=== PATIENT | female | born 1975 | race Caucasian/White ===

== ENCOUNTER → 2016-09-15 | Outpatient (CLI) | payer BC ==
[~2016-09-15] MED LIST: PHENTERMINE30 MG PO; PREDNISONE 20MG20 MG PO
== END ==
LOC: MC.RAD 10:20
DX: Z12.31 Encounter for screening mammogram for malignant neoplasm of breast (principal)

== ENCOUNTER → 2018-01-26 | Outpatient (CLI) | payer BC | LOC: MC.RAD 07:04 | DX: Z12.31 Encounter for screening mammogram for malignant neoplasm of breast (principal) ==

== ENCOUNTER → 2018-12-24 | Outpatient (CLI) | payer BC ==
[2018-12-24 11:51] LABS: THYROXINE (T4)-TOTAL 6.3 ug/dL (5.5-11.0)
[2018-12-24 12:05] LABS: THYROID STIMULATING HORMONE < 0.015 uIU/mL (0.465-4.680)
[2018-12-24 22:56] LABS: T3 FREE (TRI-IODOTHYRONINE) 2.8 pg/mL (1.7-3.7)
== END ==
LOC: COL.RAD 10:30
DX: E04.2 Nontoxic multinodular goiter (principal)

== ENCOUNTER → 2019-12-14 | Outpatient (CLI) | payer BC | LOC: COL.RAD 07:03 | DX: M19.012 Primary osteoarthritis, left shoulder (principal) ==

== ENCOUNTER 2020-08-03 06:27 | Day surgery (SDC) | payer BC ==
[~2020-08-03] VITALS: Ht 167.6 cm; Wt 91.2 kg
[2020-08-03] MEDS ORDERED: ZOLOFT 50MG50 MG PO (07:03)
[2020-08-03] MEDS ORDERED: AIMOVIG AU70 MG/1 M1 SQ (07:03)
[2020-08-03] MEDS ORDERED: TROKEND100 PO (07:04)
[2020-08-03] MEDS ORDERED: MAXALT5 MG PO (07:04)
[2020-08-03] MEDS ORDERED: ATIVAN 0.50.5 MG/TAB PO (07:04)
[2020-08-03] MEDS ORDERED: CLARITIN 1010 MG/TAB PO (07:05)
[2020-08-03] MEDS ORDERED: ZYRTEC 10MG10 MG PO (07:05)
[2020-08-03] MEDS ORDERED: BIOTIN10000 MC1 PO (07:06)
[2020-08-03] MEDS ORDERED: PRILOTC PO (07:22)
[2020-08-03 07:25] VITALS: BP 110/69; PULSE 67; TEMP 98.3
[2020-08-03 08:28] VITALS: BP 96/72; PULSE 74
--- NOTE | 2020-08-03 08:35 | NUR ---
PT RETURNED FROM ENDO PROCEDURE ROOM. PT ALERT AND SLEEPY. PT REQUESTS SPRITE AND SALTINES. WILL MONITOR.
--- NOTE | 2020-08-03 08:43 | NUR ---
PT ALERT AND TOLERATING PO WITHOUT DIFFICULTY. LUNGS CLEAR, HRR AND BOWEL SOUNDS ACTIVE. DENIES PAIN, NAUSEA, OR VOMITING. WILL CONT TO MONITOR.
[2020-08-03 09:00] VITALS: BP 112/72; PULSE 52; TEMP 97.3
--- NOTE | 2020-08-03 10:27 | NUR ---
PT ALERT AND ORIENTATED. DENIES NAUSEA, VOMITING. TOLERATING CRACKERS AND ORANGE JUICE WITHOUT PROBLEM. PT IV DC'D WITHOUT DIFFICULTY. PRESENT. PT DISCHARGED PER TO FAMILY VEHICLE, DRIVING. DISCHARGE PAPERS WERE SIGNED, DENIES QUESTIONS
== END 2020-08-03 10:33 | disposition home or self-care (01) ==
LOC: SDCO 06:27
DX: K29.50 Unspecified chronic gastritis without bleeding (principal); K62.89 Other specified diseases of anus and rectum; K92.1 Melena; K60.0 Acute anal fissure; R19.7 Diarrhea, unspecified; K63.9 Disease of intestine, unspecified; F32.9 Major depressive disorder, single episode, unspecified; G43.909 Migraine, unspecified, not intractable, without status migrainosus; F43.10 Post-traumatic stress disorder, unspecified; M19.90 Unspecified osteoarthritis, unspecified site; F41.9 Anxiety disorder, unspecified; Z88.1 Allergy status to other antibiotic agents; Z83.71 Family history of colonic polyps; Z86.16 Personal history of COVID-19
CPT/HCPCS: J2704; J7120